=== PATIENT | male | born 1950 | race Caucasian/White ===

== ENCOUNTER → 2018-02-14 | Outpatient (CLI) | payer MEDICARE | LOC: M SLEEP 20:00 | DX: G47.33 Obstructive sleep apnea (adult) (pediatric) (principal) | CPT/HCPCS: 95811 ==

== ENCOUNTER → 2019-08-05 | Outpatient (REF) | LOC: M LAB LCGH 10:11 | PROVIDERS: ATTEND Surgery | DX: Z86.010 Personal history of colon polyps (principal) ==

== ENCOUNTER → 2024-03-26 | Outpatient (CLI) | payer MEDICARE ==
[~2024-03-26] MED LIST: LATA1DRO OP; LISI20TA33 PO; OMEG10002 PO; ROSU20TA61 PO; THERTAB52 PO; VITAMIN D PO
== END ==
LOC: M ONCR 08:43
PROVIDERS: ATTEND General Practice
DX: C61 Malignant neoplasm of prostate (principal); Z71.2 Person consulting for explanation of examination or test findings; Z79.818 Long term (current) use of other agents affecting estrogen receptors and estrogen levels

== ENCOUNTER 2024-05-21 09:15 | Outpatient (RCR) | payer MEDICARE | END 2024-05-23 | LOC: M ONCR 09:15 | PROVIDERS: ATTEND General Practice | DX: Z51.0 Encounter for antineoplastic radiation therapy (principal); C61 Malignant neoplasm of prostate ==

== ENCOUNTER 2024-06-22 09:11 | Outpatient (RCR) | payer MEDICARE ==
[~2024-06-22 09:11] MED LIST changes: +VENL75CA47 PO
== END 2024-06-23 ==
LOC: M ONCR 09:11
PROVIDERS: ATTEND General Practice
DX: Z51.0 Encounter for antineoplastic radiation therapy (principal); C61 Malignant neoplasm of prostate

== ENCOUNTER → 2024-09-22 | Outpatient (CLI) | payer MEDICARE ==
[~2024-09-22] MED LIST changes: +AZIT-12 PO; +LACT20EL PO; +PRED50TA PO; -ROSU20TA61 PO; +ROSU20TA86 PO
== END ==
LOC: M ONCR 09:17
PROVIDERS: ATTEND General Practice
DX: C61 Malignant neoplasm of prostate (principal); K59.00 Constipation, unspecified; R05.9 Cough, unspecified; Z79.899 Other long term (current) drug therapy; Z92.3 Personal history of irradiation

== ENCOUNTER → 2025-03-23 | Outpatient (CLI) | payer MEDICARE ==
[~2025-03-23] MED LIST changes: +CIPR750T2 PO; +FINA5TAB2 PO; -PRED50TA PO; +PRED50TA57 PO; +TAMS-18 PO
== END ==
LOC: M ONCR 14:09
PROVIDERS: ATTEND General Practice
DX: C61 Malignant neoplasm of prostate (principal); R35.1 Nocturia; Z92.3 Personal history of irradiation; Z79.899 Other long term (current) drug therapy

== ENCOUNTER → 2025-09-22 | Outpatient (CLI) | payer MEDICARE | LOC: M ONCR 13:42 | PROVIDERS: ATTEND General Practice | DX: C61 Malignant neoplasm of prostate (principal); R23.2 Flushing; Z79.899 Other long term (current) drug therapy; Z92.3 Personal history of irradiation ==